=== PATIENT | female | born 1965 | race American Indian/Alaskan Native ===

== ENCOUNTER 2017-09-20 09:42 | Outpatient (CLI) | payer BC ==
--- NOTE | 2017-09-20 10:42 | Mammography Report ---
BILATERAL MAMMOGRAM: FINDINGS: There are scattered fibroglandular densities (approximately 25%-50% glandular). No mass, distortion, suspicious calcification, or skin change is seen. There is no significant change when compared to prior exams dating back to 2015. CAD was utilized. IMPRESSION: Negative mammogram. There is no mammographic evidence of malignancy. RECOMMENDATION: Follow-up per ACS guidelines. BI-RADS CATEGORY: 1 = Negative ACR BI-RADS MAMMOGRAPHIC CODES: 0 = Needs additional imaging evaluation; 1 = Negative; 2 = Benign; 3 = Probably benign; 4 = Suspicious; 5 = Malignant; 6 = Known biopsy-proven malignancy COMMENT: 1. Dense breast tissue, i.e., adenosis, fibrocystic changes, etc., may obscure an underlying neoplasm. 2. Approximately 10% of cancers are not detected with mammography. 3. A negative mammography report should not delay biopsy if a clinically suspicious mass is present. COMMENT: Patient follow-up letters are generated in [employer].
== END 2017-09-20 09:43 | disposition home or self-care (01) ==
LOC: MAMMO 09:42
PROVIDERS: ATTEND Internal Medicine
DX: Z12.31 Encounter for screening mammogram for malignant neoplasm of breast (principal)
CPT/HCPCS: 77067; G0202

== ENCOUNTER 2018-07-03 12:26 | Outpatient (CLI) | payer BC ==
--- NOTE | 2018-07-03 14:44 | Ultrasound Report ---
BILATERAL DIGITAL DIAGNOSTIC MAMMOGRAM with CAD and LEFT BREAST ULTRASOUND: 07/03/18 CLINICAL: Left breast pain and a recent palpable lump of the left axilla. She no longer feels the lump. COMPARISON:09/20/17 mammogram FINDINGS: The breasts are mostly fatty with a few bilateral scattered fibroglandular densities. The left inner parenchyma asymmetry is unchanged compared to previous exams. No mass, architectural distortion or suspicious calcifications. Ultrasound of the left breast (including all four quadrants and the retroareolar area) demonstrated normal fibroglandular and fatty structures. No mass, cyst or shadowing. Ultrasound of the left axilla demonstrated a single axillary lymph node with central fat and benign morphology. Measures 1.9 x 1.3 x 0.9 cm and correlates with what she has felt a lump. IMPRESSION: Negative mammogram and negative left breast ultrasound.A single benign left axillary lymph node. No explanation for left breast pain. BI-RADS CATEGORY: 2 -- Benign RECOMMENDATION: Clinical followup and routine mammographic screening in one year. COMMENT: Patient follow-up letters are generated by our [employer] application.
== END 2018-07-03 12:27 | disposition home or self-care (01) ==
LOC: MAMMO 12:26
PROVIDERS: ATTEND Internal Medicine
DX: R92.8 Other abnormal and inconclusive findings on diagnostic imaging of breast (principal); N64.4 Mastodynia
CPT/HCPCS: 77066

== ENCOUNTER 2019-07-16 08:17 | Outpatient (CLI) | payer BC ==
--- NOTE | 2019-07-16 09:49 | Mammography Report ---
DIGITAL SCREENING MAMMOGRAM WITH CAD, 07/16/2019 INDICATION: Routine screening mammography. TECHNIQUE: Digital bilateral 2D mammography was obtained in the craniocaudal and mediolateral obliq ue projections. This examination was interpreted with the benefit of Computer-Aided Detection analysi s. COMPARISON: 07/03/2018 and mammograms going back to 09/13/2011 FINDINGS: Breast Density: The breasts are heterogeneously dense, which may obscure small masses. There is no evidence of dominant mass, suspicious calcifications or architectural distortion in eithe r breast. The fibroglandular pattern of the left breast with asymmetries is not significantly changed compared to previous exams. IMPRESSION: No mammographic evidence of malignancy. Follow up recommendation: Routine yearly BI-RADS Category 2: Benign. A "normal" or negative report should not discourage follow up or biopsy of a clinically significant f inding. A written summary of these findings will be mailed to the patient. The patient will be entered into a mammography reporting system which will generate a reminder letter for the patient's next appointmen t at the appropriate interval. [employer] recommends yearly mammograms starting at age 40 and continuing as l guero as a woman is in good health. Breast MRI is recommended for women with an approximate 20-25% or greater lifetime risk of breast cancer, including women with a strong family history of breast or ova farzana cancer or who have been treated for Hodgkin's disease. Signer Name: Zoran Ross MD Signed: 07/16/2019 9:44 AM Workstation Name: [id number]
== END 2019-07-16 08:18 | disposition home or self-care (01) ==
LOC: MAMMO 08:17
PROVIDERS: ATTEND Internal Medicine
DX: Z12.31 Encounter for screening mammogram for malignant neoplasm of breast (principal)
CPT/HCPCS: 77067